=== PATIENT | male | born 1985 ===

== ENCOUNTER 2019-03-13 16:02 | Emergency (ER) | payer OTHER ==
[2019-03-13 16:11] VITALS: RESP 18; TEMP 98.5
--- NOTE | 2019-03-13 16:43 | XR ---
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 Joint spaces preserved. Tiny medial tibial plateau spurring is present. There is a moderate to large joint effusion present. IMPRESSION: 1. Moderate to large joint effusion. 2. No acute osseous abnormality.
--- NOTE | 2019-03-13 16:53 | ED ---
Fall HPI - General Chief Complaint: Fall Stated Complaint: [facility]-Knee Injury Time Seen by Provider: 03/13/19 16:10 Source: patient Mode of arrival: EMS - History of Present Illness Initial Comments: Patient is a 33-year-old male presenting to emergency Department with complaints of left knee pain after falling on it 2 days ago. Patient is accompanied by border patrol agents. Patient states he was working and slipped in the snow and landed onto his left knee. 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 Patient states he has been able to walk on his left knee but it is sore. Patient did notice some swelling. Patient denies fever or chills. Patient has no other complaints at this time. Upon arrival to the ER, vital signs are stable. - Related Data Allergies Allergy/AdvReac Type Severity Reaction Status Date / Time No Known Allergies Allergy Verified 03/13/19 16:11 Review of Systems ROS Statement: Those systems with pertinent positive or pertinent negative responses have been documented in the HPI. ROS Other: All systems not noted in ROS Statement are negative. Past Medical History Past Medical History: No Reported History History of Any Multi-Drug Resistant Organisms: None Reported Past Surgical History: Orthopedic Surgery Additional Past Surgical History / Comment(s): Bilat femur surgery, bilet knee surgery Past Psychological History: No Psychological Hx Reported Smoking Status: Light tobacco smoker Past Alcohol Use History: Occasional Past Drug Use History: Marijuana General Exam - General Exam Comments Initial Comments: GENERAL: Well-appearing, well-nourished and in no acute distress. HEAD: Atraumatic, normocephalic. EYES: Pupils equal round and reactive to light, extraocular movements intact, sclera anicteric, conjunctiva are normal. ENT: Moist mucous membranes. NECK: Normal range of motion, supple without lymphadenopathy or JVD. LUNGS: Breath sounds clear to auscultation bilaterally and equal. No wheezes rales or rhonchi. HEART: Regular rate and rhythm without murmurs, rubs or gallops. ABDOMEN: Soft, nontender, normoactive bowel sounds. No guarding, no rebound. No masses appreciated. EXTREMITIES: Pain with palpation of the anterior left knee. Patient has decreased knee flexion secondary to pain and swelling. Patient does have mild to moderate joint effusion. Neurovascular intact. Positive PCL test. NEUROLOGICAL: Normal speech, normal gait. PSYCH: Normal mood, normal affect. SKIN: Warm, Dry, normal turgor, no rashes or lesions noted. Limitations: no limitations Course Vital Signs 03/13/19 16:06 Temperature 98.5 F Pulse Rate 95 Respiratory 18 Rate Blood Pressure 166/106 O2 Sat by Pulse 96 Oximetry Medical Decision Making - Medical Decision Making Patient is a 33-year-old male presenting with left knee pain after falling on it 2 days ago. X-rays reveal no acute fractures dislocations. At the tissue mild to moderate joint effusion. Patient has laxity of the PCL ligament. Patient needs to follow up with orthopedics for further evaluation. Use NSAIDs for pain relief as well as ice. Patient is stable for discharge at this time he has agreement with this plan of care. [facility]. Disposition Clinical Impression: Left anterior knee pain Disposition: HOME SELF-CARE Condition: Stable Instructions (If sedation given, give patient instructions): Knee Pain (ED) Additional Instructions: Please return to the Emergency Department if symptoms worsen or any other concerns. Follow-up with orthopedics as discussed. Use NSAIDs for pain and swelling as well as ice. Is patient prescribed a controlled substance at d/c from ED?: No Referrals: None,Stated [Primary Care Provider] - 1-2 days Tony Anderson MD [STAFF PHYSICIAN] - 1-2 days
[2019-03-13 17:13] VITALS: BP 148/98; PULSE 88
== END 2019-03-13 17:12 | disposition home or self-care (01) ==
LOC: EC 16:02
DX: M25.562 Pain in left knee (principal); M25.462 Effusion, left knee; F17.200 Nicotine dependence, unspecified, uncomplicated; W00.0XXA Fall on same level due to ice and snow, initial encounter; Y92.69 Other specified industrial and construction area as the place of occurrence of the external cause; Y99.0 Civilian activity done for income or pay
CPT/HCPCS: 99283